=== PATIENT | male | born 1960 | race Hispanic/Latino ===

== ENCOUNTER 2017-05-15 16:40 | Observation (INO) | payer BC ==
[2017-05-15] MEDS ORDERED: Morphine 4 mg/ml ISec IVP STA ×2 (17:33→20:11)
--- NOTE | 2017-05-15 17:41 | ED PDOC ---
Arrival/HPI <Cl Ann - Last Filed: 05/15/17 20:21> - General Historian: Patient <Keo Franco - Last Filed: 05/17/17 21:09> - General Chief Complaint: Abdominal Pain Time Seen by Provider: 05/15/17 17:13 - History of Present Illness Narrative History of Present Illness (Text): 05/15/17 17:40 57yo male with PMhx of hypertension present with 2days history of RLQ abdominal pain with associated nonbloody diarrhea x 8. States pain became worse today. She denies nausea, vomiting, fever,chills, chest pain, urinary symptoms, any other complaint. (Keo Franco A) Past Medical History - Provider Review Nursing Documentation Reviewed: Yes - Infectious Disease Hx of Infectious Diseases: None - Tetanus Immunization Tetanus Immunization: Unknown - Cardiac Hx Cardiac Disorders: Yes Hx Hypertension: Yes - Pulmonary Hx Respiratory Disorders: No - Neurological Hx Neurological Disorder: Yes Hx Transient Ischemic Attacks (TIA): Yes - HEENT Hx HEENT Disorder: No - Renal Hx Renal Disorder: No - Endocrine/Metabolic Hx Endocrine Disorders: No - Hematological/Oncological Hx Blood Disorders: No - Integumentary Hx Dermatological Disorder: No - Musculoskeletal/Rheumatological Hx Musculoskeletal Disorders: Yes Hx Arthritis: Yes - Gastrointestinal Hx Gastrointestinal Disorders: No - Genitourinary/Gynecological Hx Genitourinary Disorders: No - Psychiatric Hx Psychophysiologic Disorder: No Hx Substance Use: No - Surgical History Hx Orthopedic Surgery: Yes Other/Comment: BILATERAL ROTATOR CUFF SX, LEFT ANKLE SX, sinus - Anesthesia Hx Anesthesia: Yes Hx Anesthesia Reactions: No Hx Malignant Hyperthermia: No - Suicidal Assessment Feels Threatened In Home Enviroment: No <Keo Franco - Last Filed: 05/17/17 21:09> Family/Social History - Physician Review Nursing Documentation Reviewed: Yes Family/Social History: Unknown Family HX Smoking Status: Heavy Smoker > 10 Cigarettes Daily Hx Alcohol Use: Yes Hx Substance Use: No Hx Substance Use Treatment: No <Keo Franco - Last Filed: 05/17/17 21:09> Allergies/Home Meds <Cl Ann - Last Filed: 05/15/17 20:21> <Keo Franco A - Last Filed: 05/17/17 21:09> Allergies/Adverse Reactions: Allergies naproxen Allergy (Verified 05/15/17 17:18) ITCHING sulfamethoxazole [From Bactrim] Allergy (Verified 05/15/17 17:18) ITCHING trimethoprim [From Bactrim] Allergy (Verified 05/15/17 17:18) ITCHING Home Medications: Home Meds Medication Instructions Recorded Confirmed Unobtainable 05/15/17 05/15/17 Review of Systems - Physician Review All systems were reviewed & negative as marked: Yes - Review of Systems Constitutional: Normal Eyes: Normal ENT: Normal Respiratory: Normal Cardiovascular: Normal Gastrointestinal: Abdominal Pain, Diarrhea. absent: Constipation, Nausea, Vomiting, Hematemesis Genitourinary Male: Normal Musculoskeletal: Normal Skin: Normal Neurological: Normal Endocrine: Normal Hemo/Lymphatic: Normal Psychiatric: Normal <Diru,Happiness A - Last Filed: 05/17/17 21:09> Physical Exam Vital Signs Reviewed: Yes Temperature: Afebrile Blood Pressure: Normal Pulse: Regular Respiratory Rate: Normal Appearance: Positive for: Well-Appearing, Non-Toxic, Comfortable Pain Distress: None Mental Status: Positive for: Alert and Oriented X 3 - Systems Exam Head: Present: Atraumatic, Normocephalic Pupils: Present: PERRL Extroacular Muscles: Present: EOMI Conjunctiva: Present: Normal Mouth: Present: Moist Mucous Membranes Neck: Present: Normal Range of Motion Respiratory/Chest: Present: Clear to Auscultation, Good Air Exchange. No: Respiratory Distress, Accessory Muscle Use Cardiovascular: Present: Regular Rate and Rhythm, Normal S1, S2. No: Murmurs Abdomen: Present: Tenderness (RLQ), Normal Bowel Sounds, Guarding (Voluntary), Other (soft). No: Distention, Peritoneal Signs, Rebound, McBurney's Point Tender, Rovsing's Sign Present Back: Present: Normal Inspection Upper Extremity: Present: Normal Inspection. No: Cyanosis, Edema Lower Extremity: Present: Normal Inspection. No: Edema Neurological: Present: GCS=15, CN II-XII Intact, Speech Normal Skin: Present: Warm, Dry, Normal Color. No: Rashes Psychiatric: Present: Alert, Oriented x 3, Normal Insight, Normal Concentration <Diru,Happiness A - Last Filed: 05/17/17 21:09> Vital Signs Temp Pulse Resp BP Pulse Ox 05/15/17 20:42 60 18 120/78 99 05/15/17 17:18 97.7 F 77 18 149/89 98 Medical Decision Making <Cl Ann - Last Filed: 05/15/17 20:21> <Keo Franco - Last Filed: 05/17/17 21:09> ED Course and Treatment: 05/17/17 21:02 PT presented for stated history. His pain improved temporary, but he started complaining of pain again in ED. Lab was unremarkable Abdominal/Pelvic CT IMPRESSION: Evaluation of bowel is limited without enteric contrast. Stomach is collapsed, limiting its evaluation. Segment of small bowel wall prominence in the left midabdomen, best seen on coronal image 62, cannot exclude inflammation or other abnormality at this site. Retained fecal material in the colon. Normal-caliber appendix. Additional details/findings as above. Correlate clinically. Followup as warranted. Result was DW the pt. He notes that he can't tolerate the pain. He was given Cipro and flagyl Case was DW Dr. Enriquez and pt was admitted for pain control and further evaluation by a GI. (Keo Franco) - Lab Interpretations Lab Results: 05/15/17 18:10 05/15/17 18:10 Lab Results 05/15/17 18:40: Lactic Acid 0.6 L 05/15/17 18:10: Sodium 140, Potassium 3.6, Chloride 106, Carbon Dioxide 24, Anion Gap 13, BUN 19, Creatinine 0.7 L, Est GFR ( Amer) > 60, Est GFR ( Non-Af Amer) > 60, Random Glucose 92, Calcium 9.3, Total Bilirubin 0.7, AST 33, ALT 36, Alkaline Phosphatase 112, Lactate Dehydrogenase 418, Total Creatine Kinase 100, Troponin I < 0.01, Total Protein 7.2, Albumin 4.4, Globulin 2.8, Albumin/Globulin Ratio 1.5, Amylase 45, Lipase 25 05/15/17 18:10: PT 11.5, INR 1.05, APTT 34.2 05/15/17 18:10: WBC 8.8 D, RBC 4.57, Hgb 14.2, Hct 42.1, MCV 92.1, MCH 31.1, MCHC 33.7, RDW 13.8, Plt Count 274, MPV 10.7, Gran % 63.4, Lymph % (Auto) 26.1, [place] % (Auto) 7.0 H, Eos % (Auto) 2.7, Baso % (Auto) 0.8, Gran # 5.55, Lymph # 2.3, [place] # 0.6, Eos # 0.2, Baso # 0.07 05/15/17 18:00: Urine Color Yellow, Urine Appearance Clear, Urine pH 6.0, Ur Specific [place] 1.020, Urine Protein Negative, Urine Glucose (UA) Negative, Urine Ketones Negative, Urine Blood Negative, Urine Nitrate Negative, Urine Bilirubin Negative, Urine Urobilinogen 0.2, Ur Leukocyte Esterase Negative - RAD Interpretation Radiology Orders: 05/15/17 17:34 ABD & PELVIS IV CONTRAST ONLY [CT] Stat - Medication Orders Current Medication Orders: Discontinued Medications Famotidine (Pepcid) 20 mg IVP STAT STA Stop: 05/15/17 17:34 Last Admin: 05/15/17 18:06 Dose: 20 mg IVP Administration Document 05/15/17 18:06 EQ (Rec: 05/15/17 18:06 EQ [id number]) Charges for Administration # of IVP Administrations 1 Metronidazole (Flagyl) 500 mg in 100 mls @ 100 mls/hr IVPB STAT STA PRN Reason: Protocol Stop: 05/15/17 21:13 Last Admin: 05/15/17 20:36 Dose: 100 mls/hr eMAR Start Stop Document 05/15/17 20:36 EQ (Rec: 05/15/17 20:36 EQ [id number]) Intravenous Solution Start Date 05/15/17 Start Time 20:36 Ciprofloxacin (Cipro 400mg/200ml Dsw) 400 mg in 200 mls @ 133.3 mls/hr IVPB STAT STA PRN Reason: Protocol Stop: 05/15/17 21:45 Last Admin: 05/15/17 22:36 Dose: 133.3 mls/hr eMAR Start Stop Document 05/15/17 22:36 IMT (Rec: 05/15/17 22:36 IMT [facility] [id number]) Intravenous Solution Start Date 05/15/17 Start Time 22:36 End Date 05/16/17 End time 00:06 Total Infusion Time 90 Sodium Chloride (Sodium Chloride 0.9%) 1,000 mls @ 100 mls/hr IV .Q10H STA Stop: 05/16/17 06:22 Last Admin: 05/15/17 20:35 Dose: 100 mls/hr eMAR Start Stop Document 05/15/17 20:35 EQ (Rec: 05/15/17 20:36 EQ [id number]) Intravenous Solution Start Date 05/15/17 Start Time 20:35 Sodium Chloride (Sodium Chloride 0.9%) 1,000 mls @ 100 mls/hr IV .Q10H DEEP Morphine Sulfate (Morphine) 4 mg IVP STAT STA Stop: 05/15/17 17:34 Last Admin: 05/15/17 18:05 Dose: 4 mg MAR Pain Assessment Document 05/15/17 18:05 EQ (Rec: 05/15/17 18:06 EQ [id number]) Pain Reassessment Is this a pain reassessment? No Sleep Is patient sleeping during reassessment? No Presence of Pain Presence of Pain Yes Pain Scale Used Pain Scale Used Numeric IVP Administration Document 05/15/17 18:05 EQ (Rec: 05/15/17 18:06 EQ [id number]) Charges for Administration # of IVP Administrations 1 Morphine Sulfate (Morphine) 4 mg IVP STAT STA Stop: 05/15/17 20:12 Last Admin: 05/15/17 20:36 Dose: 4 mg MAR Pain Assessment Document 05/15/17 20:36 EQ (Rec: 05/15/17 20:36 EQ [id number]) Pain Reassessment Is this a pain reassessment? No Sleep Is patient sleeping during reassessment? No Presence of Pain Presence of Pain Yes IVP Administration Document 05/15/17 20:36 EQ (Rec: 05/15/17 20:36 EQ [id number]) Charges for Administration # of IVP Administrations 1 Morphine Sulfate (Morphine) 4 mg IVP Q4H PRN PRN Reason: Pain, moderate (4-7) Last Admin: 05/16/17 16:02 Dose: 4 mg MAR Pain Assessment Document 05/16/17 16:02 TAV (Rec: 05/16/17 16:03 TAV [facility] [id number]) Pain Reassessment Is this a pain reassessment? No Presence of Pain Presence of Pain Yes Pain Scale Used Pain Scale Used Numeric Location Left, Right or Bilateral Right Upper or Lower Lower Pain Location Body Site Abdomen Description Description Throbbing Intensity of Pain at present 6 Pain Behavior Restlessness Aggravating Factors Changing Position Alleviating Factors/Management Medication Techniques Alleviating Factors Medication IVP Administration Document 05/16/17 16:02 TAV (Rec: 05/16/17 16:03 TAV [facility] [id number]) Charges for Administration # of IVP Administrations 1 Re-Assess: LEANDRA Pain Assessment Document 05/16/17 17:02 DM (Rec: 05/16/17 18:04 [id number] Pain Reassessment Is this a pain reassessment? Yes Sleep Is patient sleeping during reassessment? No Presence of Pain Presence of Pain Yes Pain Scale Used Pain Scale Used Numeric Description Intensity of Pain at present 4 Ondansetron HCl (Zofran Inj) 4 mg IVP STAT STA Stop: 05/15/17 17:34 Last Admin: 05/15/17 18:06 Dose: 4 mg IVP Administration Document 05/15/17 18:06 EQ (Rec: 05/15/17 18:06 EQ [id number]) Charges for Administration # of IVP Administrations 1 Ondansetron HCl (Zofran Inj) 4 mg IVP Q6H PRN PRN Reason: Nausea/Vomiting Pantoprazole Sodium (Protonix Inj) 40 mg IVP DAILY [facility] Last Admin: 05/17/17 10:10 Dose: 40 mg IVP Administration Document 05/17/17 10:10 TAV (Rec: 05/17/17 10:10 TAV [id number]) Charges for Administration # of IVP Administrations 1 Vitamin A (Vitamin A & D Oint Ud Foilpak) 1 ea TOP Q4 PRN PRN Reason: Dry mouth Last Admin: 05/16/17 11:22 Dose: 1 ea - PA / STONE ENGRAVER / Resident Statement / has reviewed & agrees with the documentation as recorded. / has examined the patient and agrees with the treatment plan. <Cl Ann - Last Filed: 05/15/17 20:21> Disposition/Present on Arrival <Cl Ann - Last Filed: 05/15/17 20:21> - Present on Arrival Any Indicators Present on Arrival: No History of DVT/PE: No History of Uncontrolled Diabetes: No Urinary Catheter: No History of Decub. Ulcer: No History Surgical Site Infection Following: None - Disposition Have Diagnosis and Disposition been Completed?: Yes Disposition Time: 20:15 <Keo Franco - Last Filed: 05/17/17 21:09> - Disposition Diagnosis: Intractable abdominal pain, Colitis Disposition: HOSPITALIZED Condition: FAIR
--- NOTE | 2017-05-15 18:04 | CP.PCM.CON ---
History of Present Illness - History of Present Illness History of Present Illness: General Surgery Consult Note for Dr. Cerna Reason for Consult: RLQ abdominal pain and diarrhea 57 M with PMH of HTN, TIA and GERD who presents to [facility] [place] complaint of RLQ abdominal pain. General surgery was consulted and patient was evaluated in the ED. Patient states that pain began two days ago while at home. Patient reports sudden onset and states it has gotten progressively worse. Patient rates pain as severe when at its worst. He describes the pain as constant and sharp located in RLQ of abdomen with radiation to right flank. Patient reports eight bouts of associated non-bloody diarrhea. He reports that flexion exacerbates his pain while nothing alleviates it. Denies fevers/chills, chest pain, SOB, palpitations, nausea/vomiting, constipation, incontinence. PMD: Dr. Newsome PMH: HTN, cholelithiasis/biliary sludge, TIA, arthritis, GERD Meds: As per EMR Allergy: Naproxen, Bactrim PSH: Bilateral Rotator Cuff repairs, right ankle surgery, EGD, Colonoscopy FH: unknown Social: Current smoker - 1 pack/day for 40 year, social alcohol use, denies any illicit drug use, Works in housekeeping at [employer] Review of Systems - Review of Systems All systems: reviewed and no additional remarkable complaints except (as per HPI ) Past Patient History - Infectious Disease Hx of Infectious Diseases: None - Tetanus Immunizations Tetanus Immunization: Unknown - Past Social History Smoking Status: Heavy Smoker > 10 Cigarettes Daily - CARDIAC Hx Cardiac Disorders: Yes Hx Hypertension: Yes - PULMONARY Hx Respiratory Disorders: No - NEUROLOGICAL Hx Neurological Disorder: Yes Hx Transient Ischemic Attacks (TIA): Yes - HEENT Hx HEENT Problems: No - RENAL Hx Chronic Kidney Disease: No - ENDOCRINE/METABOLIC Hx Endocrine Disorders: No - HEMATOLOGICAL/ONCOLOGICAL Hx Blood Disorders: No - INTEGUMENTARY Hx Dermatological Problems: No - MUSCULOSKELETAL/RHEUMATOLOGICAL Hx Musculoskeletal Disorders: Yes Hx Arthritis: Yes - GASTROINTESTINAL Hx Gastrointestinal Disorders: No - GENITOURINARY/GYNECOLOGICAL Hx Genitourinary Disorders: No - PSYCHIATRIC Hx Psychophysiologic Disorder: No Hx Substance Use: No - SURGICAL HISTORY Hx Orthopedic Surgery: Yes Other/Comment: BILATERAL ROTATOR CUFF SX, LEFT ANKLE SX, sinus - ANESTHESIA Hx Anesthesia: Yes Hx Anesthesia Reactions: No Hx Malignant Hyperthermia: No Meds Allergies/Adverse Reactions: Allergies Allergy/AdvReac Type Severity Reaction Status Date / Time naproxen Allergy ITCHING Verified 05/15/17 17:18 sulfamethoxazole Allergy ITCHING Verified 05/15/17 17:18 [From Bactrim] trimethoprim [From Bactrim] Allergy ITCHING Verified 05/15/17 17:18 Physical Exam - Constitutional Appears: No Acute Distress - Head Exam Head Exam: ATRAUMATIC, NORMOCEPHALIC - Eye Exam Eye Exam: EOMI, Normal appearance Pupil Exam: PERRL - ENT Exam ENT Exam: Mucous Membranes Dry - Neck Exam Neck exam: Positive for: Full Rom - Respiratory Exam Respiratory Exam: NORMAL BREATHING PATTERN - Cardiovascular Exam Cardiovascular Exam: REGULAR RHYTHM - GI/Abdominal Exam GI & Abdominal Exam: Guarding (voluntary), Normal Bowel Sounds, Soft, Tenderness (RLQ). absent: Distended, Firm, Hernia, Rebound, Rigid - Extremities Exam Extremities exam: Negative for: calf tenderness - Back Exam Back exam: absent: CVA tenderness (L), CVA tenderness (R) - Neurological Exam Neurological exam: Alert, CN II-XII Intact, Oriented x3 - Psychiatric Exam Psychiatric exam: Normal Affect, Normal Mood - Skin Skin Exam: Dry, Intact, Normal Color, Warm Results - Vital Signs Recent Vital Signs: Last Vital Signs Temp 97.7 F 05/15/17 17:18 Pulse 77 05/15/17 17:18 Resp 18 05/15/17 17:18 BP 149/89 05/15/17 17:18 Pulse Ox 98 05/15/17 17:18 - Labs Result Diagrams: 05/15/17 18:10 05/15/17 18:10 Assessment & Plan - Assessment and Plan (Free Text) Plan: 57 M with PMH of HTN, TIA and GERD who presents to [facility] for complaint of RLQ abdominal pain and diarrhea likely secondary to gastroenteritis. CT showed no evidence of acute appendicitis -NPO -IV fluids -IV antibiotics -Analgesics PRN -Serial abdominal exams -No surgical intervention at this time. Reconsult as needed. Thank you. -Discussed with Dr. Nehemiah Avalos PGY1
[2017-05-15] MEDS ORDERED: Iohexol 350 MG/100 ML VIAL ONE (18:21)
[2017-05-15 18:46] LABS: URINE BILIRUBIN NEGATIVE (NEGATIVE); URINE BLOOD NEGATIVE (NEGATIVE); URINE GLUCOSE (UA) NEGATIVE (NEGATIVE); URINE LEUKOCYTE ESTERASE NEGATIVE Leu/uL (NEGATIVE); URINE NITRATE NEGATIVE (NEGATIVE); URINE PROTEIN NEGATIVE mg/dL (<30 mg/dL); URINE UROBILINOGEN 0.2 E.U./dL (<1 E.U./dL)
[2017-05-15 18:47] LABS: BASO # 0.07 K/mm3 (0.0-2.0); BASO % 0.8 % (0.0-3.0); EOS # 0.2 (0.0-0.7); EOS % 2.7 % (1.5-5.0); GRAN # 5.55 (1.4-6.5); GRAN % 63.4 % (50.0-68.0); HEMOGLOBIN 14.2 g/dL (14.0-18.0); LYMPH # 2.3 (1.2-3.4); LYMPH % 26.1 % (22.0-35.0); MEAN CELL VOLUME 92.1 fl (80.0-105.0); MEAN CORPUSCULAR HEMOGLOBIN 31.1 pg (25.0-35.0); MEAN CORPUSCULAR HGB CONC 33.7 g/dl (31.0-37.0); MEAN PLATELET VOLUME 10.7 fl (7.0-11.0); MONO # 0.6 (0.1-0.6); RBC 4.57 10^6/uL (3.5-6.1); RED CELL DISTRIBUTION WIDTH 13.8 % (11.5-14.5); WHITE BLOOD COUNT 8.8 10^3/ul (4.5-11.0)
[2017-05-15 18:54] LABS: INR 1.05 (0.93-1.08); PARTIAL THROMBOPLASTIN TIME 34.2 Seconds (25.1-36.5); PROTHROMBIN TIME 11.5 SECONDS (9.4-12.5)
[2017-05-15 18:55] LABS: URINE APPEARANCE CLEAR (CLEAR); URINE COLOR YELLOW (YELLOW)
[2017-05-15 18:59] LABS: ALB/GLOB RATIO 1.5 (1.1-1.8); ALBUMIN 4.4 g/dL (3.0-4.8); ALT/SGPT 36 U/L (7-56); AMYLASE 45 U/L (35-125); AST/SGOT 33 U/L (17-59); BLOOD UREA NITROGEN 19 mg/dL (7-21); CALCIUM 9.3 mg/dL (8.4-10.5); GFR AFRICAN-AMERICAN > 60; GFR NON-AFRICAN AMERICAN > 60; LIPASE 25 U/L (23-300)
[2017-05-15 19:10] LABS: TROPONIN I < 0.01 ng/mL
--- NOTE | 2017-05-15 20:02 | CT ---
EXAM: CT Abdomen and Pelvis With Intravenous Contrast CLINICAL HISTORY: 57 years old, male; Pain; Abdominal pain; Localized; Right lower quadrant (rlq); Additional info: Rlq abdominal pain TECHNIQUE: Axial computed tomography images of the abdomen and pelvis with intravenous contrast. All CT scans at this facility use one or more dose reduction techniques, viz.: automated exposure control; ma/kV adjustment per patient size (including targeted exams where dose is matched to indication; i.e. head); or iterative reconstruction technique. Coronal and sagittal reformatted images were created and reviewed. CONTRAST: 100 mL of OMNI 350 administered intravenously. COMPARISON: No relevant prior studies available. FINDINGS: ABDOMEN: Liver: No acute abnormality as visualized. Gallbladder and bile ducts: No acute abnormality as visualized. Ultrasound can provide more sensitive evaluation of the biliary system as warranted. Pancreas: No acute abnormality as visualized. Spleen: No splenomegaly. Adrenals: No acute abnormality as visualized. Kidneys and ureters: No acute abnormality as visualized. Symmetric emhancement. No hydronephrosis. Stomach and bowel: Evaluation of bowel is limited without enteric contrast. Stomach is collapsed, limiting its evaluation. Segment of small bowel wall prominence in the left midabdomen, axial image 62. Retained fecal material in the colon. No obstruction. Appendix: No findings to suggest acute appendicitis. Normal-caliber appendix. PELVIS: Bladder: No acute abnormality as visualized. Reproductive: No acute abnormality as visualized. ABDOMEN and PELVIS: Intraperitoneal space: No free air. No significant fluid collection. Bones: Degenerative changes. Vasculature: Atherosclerosis. No abdominal aortic aneurysm. Lymph nodes: No acute abnormality as visualized. IMPRESSION: Evaluation of bowel is limited without enteric contrast. Stomach is collapsed, limiting its evaluation. Segment of small bowel wall prominence in the left midabdomen, best seen on coronal image 62, cannot exclude inflammation or other abnormality at this site. Retained fecal material in the colon. Normal-caliber appendix. Additional details/findings as above. Correlate clinically. Followup as warranted.
[2017-05-15] MEDS ORDERED: metroNIDAZOLE IV 500 mg/100 ml 500 MG/100 ML BAG IVPB STA (20:14)
[2017-05-15] MEDS ORDERED: Ciprofloxacin 400mg/200ml D5W 400 MG/200 ML BAG IVPB STA (20:15)
[2017-05-15] MEDS ORDERED: Sodium Chloride 0.9% 1,000 ML IV STA (20:23)
[2017-05-15] MEDS ORDERED: Sodium Chloride 0.9% 1,000 ML IV SCH (21:30)
--- NOTE | 2017-05-15 22:19 | CP.PCM.HP ---
History of Present Illness - History of Present Illness History of Present Illness: Mr. Del Cid is a 57 year old male with a past medical history significant for HTN, cholelithiasis/biliary sludge, "minor" stroke, arthritis of right ankle and GERD who presents with a chief complaint of intermittent RLQ "aching" abdominal pain rated 8/10 with 8 episodes of associated nonbloody diarrhea of normal color for a duration of two days. Patient reports that two days ago he began to experience the pain described above with no reported inciting event. He endorses that the pain has intermittent radiation to his back on the right side. He denies any alleviating factors but reports that leaning forward induces his pain. He reports that he came to the [facility] because the pain was persisting and gradually becoming worse. He does endorses that he completed a "Z -pack" for poison trace one month ago prescribed to him by Dr. Newsome. He endorses nonbloody diarrhea and chronic arthritic pain but denies fevers, chills , headache, changes in his vision, dysphagia, chest pain, palpitations, SOB, cough, N/V, difficulty tolerating PO intake, constipation, BRBPR, melena, burning/pain with urination, rashes or any numbness/tingling/weakness of any extremity. PMH: As stated above PSH: Bilateral Rotator Cuff repairs and right ankle surgery; Reports Upper Endoscopy and Colonoscopy done ~[address] Bernard with no abnormal findings Family History: Denies any history of colon cancer, IBD Social History: Current 1ppd tobacco use with 40 year pack history, social alcohol use and denies any illicit drug use; Works in housekeeping at [employer] Allergies: Aleve, Bactrim Home Medications: As per MAR Present on Admission - Present on Admission Any Indicators Present on Admission: No Review of Systems - Constitutional Constitutional: As Per HPI - EENT Eyes: As Per HPI Ears: As Per HPI Nose/Mouth/Throat: As Per HPI - Cardiovascular Cardiovascular: As Per HPI - Respiratory Respiratory: As Per HPI - Gastrointestinal Gastrointestinal: As Per HPI - Genitourinary Genitourinary: As Per HPI - Reproductive: Male Reproductive:Male: As Per HPI - Musculoskeletal Musculoskeletal: As Per HPI - Integumentary Integumentary: As Per HPI - Neurological Neurological: As Per HPI - Psychiatric Psychiatric: As Per HPI - Endocrine Endocrine: As Per HPI - Hematologic/Lymphatic Hematologic: As Per HPI Past Patient History - Infectious Disease Hx of Infectious Diseases: None - Tetanus Immunizations Tetanus Immunization: Unknown - Past Social History Smoking Status: Heavy Smoker > 10 Cigarettes Daily - CARDIAC Hx Cardiac Disorders: Yes Hx Hypertension: Yes - PULMONARY Hx Respiratory Disorders: No - NEUROLOGICAL Hx Neurological Disorder: Yes Hx Transient Ischemic Attacks (TIA): Yes - HEENT Hx HEENT Problems: No - RENAL Hx Chronic Kidney Disease: No - ENDOCRINE/METABOLIC Hx Endocrine Disorders: No - HEMATOLOGICAL/ONCOLOGICAL Hx Blood Disorders: No - INTEGUMENTARY Hx Dermatological Problems: No - MUSCULOSKELETAL/RHEUMATOLOGICAL Hx Musculoskeletal Disorders: Yes Hx Arthritis: Yes - GASTROINTESTINAL Hx Gastrointestinal Disorders: No - GENITOURINARY/GYNECOLOGICAL Hx Genitourinary Disorders: No - PSYCHIATRIC Hx Psychophysiologic Disorder: No Hx Substance Use: No - SURGICAL HISTORY Hx Orthopedic Surgery: Yes Other/Comment: BILATERAL ROTATOR CUFF SX, LEFT ANKLE SX, sinus - ANESTHESIA Hx Anesthesia: Yes Hx Anesthesia Reactions: No Hx Malignant Hyperthermia: No Meds Allergies/Adverse Reactions: Allergies Allergy/AdvReac Type Severity Reaction Status Date / Time naproxen Allergy ITCHING Verified 05/15/17 17:18 sulfamethoxazole Allergy ITCHING Verified 05/15/17 17:18 [From Bactrim] trimethoprim [From Bactrim] Allergy ITCHING Verified 05/15/17 17:18 Physical Exam - Constitutional Appears: Non-toxic, No Acute Distress - Head Exam Head Exam: ATRAUMATIC, NORMOCEPHALIC - Eye Exam Eye Exam: EOMI, Normal appearance, PERRL Pupil Exam: NORMAL ACCOMODATION, PERRL - ENT Exam ENT Exam: Mucous Membranes Dry, Normal Exam. absent: Mucous Membranes Moist - Neck Exam Neck exam: Positive for: Full Rom, Normal Inspection. Negative for: Lymphadenopathy - Respiratory Exam Respiratory Exam: Clear to Auscultation Bilateral, NORMAL BREATHING PATTERN. absent: Accessory Muscle Use, Chest Wall Tenderness, Decreased Breath Sounds, Rales, Rhonchi, Wheezes, Respiratory Distress - Cardiovascular Exam Cardiovascular Exam: REGULAR RHYTHM, RRR, +S1, +S2. absent: Bradycardia, Tachycardia, Irregular Rhythm, +S4 - GI/Abdominal Exam GI & Abdominal Exam: Guarding (RLQ upon palpation), Normal Bowel Sounds, Tenderness (RLQ TTP (light and deep)). absent: Bruit, Diminished Bowel Sounds, Distended, Firm, Hernia, Hyperactive Bowel Sounds, Hypoactive Bowel Sounds, Mass , Organomegaly, Pulsatile Mass, Rebound, Rigid, Soft - Rectal Exam Rectal Exam: NORMAL INSPECTION (FOBT negative). absent: Black Stool, Bloody Stool, Hemorrhoids, Fecal Impaction - Extremities Exam Extremities exam: Positive for: full ROM, normal capillary refill, normal inspection, pedal pulses present. Negative for: calf tenderness, pedal edema - Back Exam Back exam: NORMAL INSPECTION. absent: CVA tenderness (L), CVA tenderness (R), paraspinal tenderness, tenderness, vertebral tenderness - Neurological Exam Neurological exam: Alert, CN II-XII Intact, Normal Gait, Oriented x3, Reflexes Normal - Psychiatric Exam Psychiatric exam: Normal Affect, Normal Mood - Skin Skin Exam: Dry, Intact, Normal Color, Warm Results - Vital Signs Recent Vital Signs: Last Vital Signs Temp 97.7 F 05/15/17 17:18 Pulse 60 05/15/17 20:42 Resp 18 05/15/17 20:42 BP 120/78 05/15/17 20:42 Pulse Ox 99 05/15/17 20:42 - Labs Result Diagrams: 05/15/17 18:10 05/15/17 18:10 Assessment & Plan - Assessment and Plan (Free Text) Assessment: 57 year old male with a past medical history significant for HTN, cholelithiasis /biliary sludge, "minor" stroke, arthritis of right ankle and GERD who presents with a chief complaint of intermittent RLQ "aching" abdominal pain rated 8/10 with 8 episodes of associated nonbloody diarrhea of normal color for a duration of two days Plan: 1. RLQ Abdominal Tenderness -CT Abdomen/Pelvis with IV Contrast showed segment of small bowel wall prominence in the left midabdomen with normal caliber appendix -Patient received one dose of Cipro and Flagyl in ED -Daily CBC/CMP -NS at 100mls/hr -Zofran 4mg Q6H PRN for N/V -Morphine 4mg Q4H PRN for pain control -C.Diff Toxin pending; Hemoccult Negative -NPO Diet -GI and Surgery consulted, will await recommendations Prophylaxis: SCD's and Protonix Patient seen and case discussed with attending, Dr. Enriquez - Date & Time Date: 05/15/17 Time: 22:35 Decision To Admit - Pt Status Changed To: Hospital Disposition Of: Observation - . Bed Request Type: Med/Surg
[2017-05-15 22:35] VITALS: BMI 24.4
[2017-05-15] MEDS: Vitamins A & D Oint UD Foilpak TOP PRN (22:40)
[2017-05-15] MEDS: Morphine 4 mg/ml ISec IVP PRN (23:21)
[2017-05-16] MEDS: Morphine 4 mg/ml ISec IVP PRN ×2 (06:32→16:02)
[2017-05-16 08:14] LABS: BASO # 0.07 K/mm3 (0.0-2.0); EOS # 0.3 (0.0-0.7); EOS % 4.1 % (1.5-5.0); GRAN # 4.12 (1.4-6.5); GRAN % 56.6 % (50.0-68.0); HEMOGLOBIN 13.3 g/dL (14.0-18.0); LYMPH # 2.3 (1.2-3.4); LYMPH % 31.3 % (22.0-35.0); MEAN CELL VOLUME 93.6 fl (80.0-105.0); MEAN CORPUSCULAR HEMOGLOBIN 30.4 pg (25.0-35.0); MEAN CORPUSCULAR HGB CONC 32.5 g/dl (31.0-37.0); MEAN PLATELET VOLUME 10.5 fl (7.0-11.0); MONO # 0.5 (0.1-0.6); RBC 4.37 10^6/uL (3.5-6.1); WHITE BLOOD COUNT 7.3 10^3/ul (4.5-11.0)
[2017-05-16 08:30] LABS: ALB/GLOB RATIO 1.4 (1.1-1.8); ALBUMIN 3.9 g/dL (3.0-4.8); ALT/SGPT 35 U/L (7-56); AST/SGOT 24 U/L (17-59); BLOOD UREA NITROGEN 19 mg/dL (7-21); CALCIUM 8.6 mg/dL (8.4-10.5); GFR AFRICAN-AMERICAN > 60; GFR NON-AFRICAN AMERICAN > 60
--- NOTE | 2017-05-16 09:08 | CP.PCM.PN ---
Subjective - Date & Time of Evaluation Date of Evaluation: 05/16/17 Time of Evaluation: 08:20 - Subjective Subjective: Patient seen and examined at bedside. He states that his abdominal pain is intermittent but that he has tolerated his diet well. denies anymore episodes of diarrhea and has not had any vomiting in this episode. pt denies fevers/ chills, n/v/d, or current abdominal pain. Objective - Vital Signs/Intake and Output Vital Signs (last 24 hours): Temp Pulse Resp BP Pulse Ox 97.3 F L 54 L 20 125/76 95 05/16/17 08:00 05/16/17 08:00 05/16/17 08:00 05/16/17 08:00 05/16/17 08:00 - Medications Medications: Current Medications Sodium Chloride (Sodium Chloride 0.9%) 1,000 mls @ 100 mls/hr IV .Q10H DEEP Morphine Sulfate (Morphine) 4 mg IVP Q4H PRN PRN Reason: Pain, moderate (4-7) Last Admin: 05/16/17 06:32 Dose: 4 mg Ondansetron HCl (Zofran Inj) 4 mg IVP Q6H PRN PRN Reason: Nausea/Vomiting Pantoprazole Sodium (Protonix Inj) 40 mg IVP DAILY DEEP Vitamin A (Vitamin A & D Oint Ud Foilpak) 1 ea TOP Q4 PRN PRN Reason: Dry mouth Last Admin: 05/15/17 22:40 Dose: 1 ea - Labs Labs: 05/16/17 07:30 05/16/17 07:30 PT 11.5 SECONDS (9.4-12.5) 05/15/17 18:10 INR 1.05 (0.93-1.08) 05/15/17 18:10 APTT 34.2 Seconds (25.1-36.5) 05/15/17 18:10 - Constitutional Appears: Well, Non-toxic, No Acute Distress - Head Exam Head Exam: NORMAL INSPECTION - Eye Exam Eye Exam: EOMI, PERRL - ENT Exam ENT Exam: Mucous Membranes Moist - Neck Exam Neck Exam: Normal Inspection - Respiratory Exam Respiratory Exam: Clear to Ausculation Bilateral, NORMAL BREATHING PATTERN. absent: Rales, Wheezes, Respiratory Distress - Cardiovascular Exam Cardiovascular Exam: RRR, +S1, +S2. absent: JVD - GI/Abdominal Exam GI & Abdominal Exam: Guarding, Soft, Tenderness (deep palpation epigastric and r sided), Normal Bowel Sounds. absent: Distended, Rigid, Rebound - Extremities Exam Extremities Exam: Normal Inspection. absent: Pedal Edema - Back Exam Back Exam: NORMAL INSPECTION - Neurological Exam Neurological Exam: Alert, Awake, Oriented x3 - Psychiatric Exam Psychiatric exam: Normal Affect, Normal Mood - Skin Skin Exam: Normal Color, Warm Assessment and Plan - Assessment and Plan (Free Text) Assessment: 57 year old male with a past medical history significant for HTN, cholelithiasis /biliary sludge, "minor" stroke, arthritis of right ankle and GERD who presents with a chief complaint of intermittent RLQ "aching" abdominal pain associated with nonbloody diarrhea x2 days. CT Abdomen/Pelvis with IV Contrast showed segment of small bowel wall prominence in the left midabdomen with normal caliber appendix. Patient remains afebrile. Plan: 1. RLQ Abdominal Tenderness - diet advanced as tolerated; now eating HHD regular diet - no abx needed at this time due to patient's improvement and lack of fevers and WBC elevation - Daily CBC/CMP - NS at 100mls/hr - Zofran 4mg Q6H PRN for N/V - Morphine 4mg Q4H PRN for pain control - C.Diff Toxin pending; Hemoccult Negative - stool cultures pending - GI consulted, recs appreciated - Surgery consulted, no surgical intervention at this time - d/c likely tomorrow pending GI recs Prophylaxis: SCD's and Protonix Patient seen, examined and discussed with attending, Dr. Zoe Messina PGY1
[2017-05-16] MEDS: Vitamins A & D Oint UD Foilpak TOP PRN (11:22)
--- NOTE | 2017-05-16 20:26 | CON ---
DATE: HISTORY OF PRESENT ILLNESS: He was seen in the Emergency Room again on the floor. His pain was severe in right lower quadrant yesterday. It is mostly resolved. He had multiple episodes of diarrhea without blood. No nausea or vomiting. Abdomen is soft, nontender, and generally healthy. No chest pain or shortness of breath. Consult is seen and agreed with the resident. CAT scan is reviewed. The appendix is normal. Plan will be to him, culture his stool and discharge him expeditiously. Pato Cerna MD
--- NOTE | 2017-05-16 22:35 | CON ---
DATE: 05/16/2017 REQUESTING PHYSICIAN: Bo Newsome DO REASON FOR CONSULTATION: I have been asked to see this 57-year-old male who is known to me from a colonoscopy, which I performed about 10 years ago, who comes to the hospital with right mid to right lower quadrant abdominal pain radiating to the right flank for 2 days associated with diarrhea. The patient states he was averaging 6 watery bowel movements per day for the last 24 to 36 hours including nocturnal diarrhea. He denies any fevers, but did admit to some chills. He denies any nausea or vomiting. He denies any recent use of antibiotics or ingestion of any unusual foods. There is no one else at home that has a diarrheal illness. CT scan of the abdomen and pelvis performed in the emergency room showed one segment of small bowel in the left upper quadrant with mural thickening. There is also stool noted throughout the colon. This morning, the patient feels better and was extremely hungry, asking for solid food. He was taking solid foods for lunch during my visit. He has not had any further diarrhea since his hospitalization. His abdominal pain has improved. PAST MEDICAL HISTORY: Notable for hypertension, gastroesophageal reflux disease, TIA, degenerative joint disease, cholelithiasis. PAST SURGICAL HISTORY: Notable for bilateral rotator cuff shoulder surgery, right ankle surgery. SOCIAL HISTORY: He smokes up to a pack of cigarettes per day and he has done so for 40 years. He consumes alcohol on a social basis. REVIEW OF SYSTEMS: 14-point review of systems is notable for right lower quadrant abdominal pain and diarrhea. MEDICATIONS AT HOME: Include an unknown medication. ALLERGIES: HE IS ALLERGIC TO NAPROSYN, BACTRIM. PHYSICAL EXAMINATION: GENERAL: Well-developed male, lying in bed, in no distress. VITAL SIGNS: Reveal temperature of 97.3, blood pressure 125/76, heart rate of 54. HEENT: Reveals sclerae to be white. Conjunctivae pink. NECK: Supple. CHEST/LUNGS: Clear. HEART: Exam reveals a regular rate and rhythm. ABDOMEN: Soft, mild diffuse tenderness. No rebound. No guarding. EXTREMITIES: Show no edema. LABORATORY DATA: Reveal white blood cell count 7.3, hemoglobin 13.3. Chemistries reveal chloride of 109. AST, ALT, alk phos, amylase and lipase were all normal. IMPRESSION: This is a 57-year-old male with 2 days of diarrhea and right lower quadrant, right mid abdominal pain radiating to the right flank. CT scan of the abdomen and pelvis revealed nonspecific mural thickening of a loop of small bowel in the left upper quadrant. I suspect that the patient has an acute gastroenteritis. His symptoms have improved. He is tolerating solid foods. RECOMMENDATIONS: 1. Check stool for C&S and ova and parasites. 2. Check stool for C. diff. If the patient continues to improve clinically, can be discharged home either later today or tomorrow morning based on his symptoms of abdominal pain and diarrhea. I will follow the patient up as an outpatient. Sam Bernard MD
--- NOTE | 2017-05-17 09:09 | DS ---
HISTORY OF PRESENT ILLNESS: I saw Jose Enrique resting comfortably in bed. Slept very well last night. He is eating well. He is in no pain, not taking any medications. He is on Protonix, IV fluids, and Zofran, which he is not getting. His abdominal pain went away, it is all relieved. PHYSICAL EXAMINATION: VITAL SIGNS: Temperature 97.3, 67 pulse, 127/70 blood pressure, 16 respiratory rate, 100% O2 sat on room air. HEENT: His head is atraumatic and normocephalic. HEART: Regular rate. LUNGS: Clear to auscultation. ABDOMEN: Soft, nontender. Positive bowel sounds. No guarding. No rebound. No CVA tenderness. EXTREMITIES: No edema. LABORATORY DATA: He has white count 7.3, hemoglobin 13.3, hematocrit 40.9, platelets are 234. INR is 1.05. He has a 141 sodium, potassium 4.1, BUN 19, creatinine 0.9, GFR is greater than 60, sugar is 92, calcium is 8.6, total bilirubin is 0.7, AST 24, ALT 35, alkaline phosphatase is 96. Total protein is 6.5. Overall, he did well. He was seen by GI and Surgery. He states he does well overnight and eats well for breakfast. He can be discharged. We will discharge him home. He is on observation status. He is here for acute onset of abdominal pain. I will see him in the office in 2 days. Bo Newsome DO
--- NOTE | 2017-05-17 09:42 | PN ---
DATE: 05/17/2017 SUBJECTIVE: The patient is lying in bed. He denies any further abdominal pain or diarrhea. He denies nausea or vomiting. He is tolerating solid foods. MEDICATIONS: Include pantoprazole 40 mg IV, morphine sulfate 4 mg IV q. 4 hours. p.r.n. Zofran 4 mg IV q. 6 hours. p.r.n. PHYSICAL EXAMINATION: VITAL SIGNS: Reveal temperature of 97.3, blood pressure of 127/78, and heart rate of 57. HEENT: Reveals sclerae to be white. Conjunctivae are pink. NECK: Supple. CHEST/LUNGS: Clear. CARDIOVASCULAR: Heart exam reveals a regular rate and rhythm. GASTROINTESTINAL: Abdomen is soft and nontender. No mass. EXTREMITIES: Show no edema. LABORATORY DATA: Revealed white blood cell count of 7.3 and hemoglobin of 13.3. Chemistries revealed chloride of 109, BUN of 19, and creatinine of 0.9. IMPRESSION: Acute gastroenteritis, resolving. RECOMMENDATIONS: The patient is to follow up with me as an outpatient for an elective colonoscopy. Sam Brenard MD
[2017-05-17 10:57] VITALS: BP 142/66; PULSE 60; RESP 18; TEMP 97.5; O2SAT 97
--- NOTE | 2017-05-17 17:44 | CARD ---
APPROVED REPORT EKG Measurement Heart [id number] ND [id number] <Conclusion> Normal sinus rhythm Normal ECG
== END 2017-05-17 11:35 | disposition home or self-care (01) ==
LOC: ED 16:40 → ERH 20:17 → 5RSO 20:53
PROVIDERS: ADMIT Family Medicine; ATTEND Family Medicine
DX: K52.9 Noninfective gastroenteritis and colitis, unspecified (principal); K21.9 Gastro-esophageal reflux disease without esophagitis; I10 Essential (primary) hypertension; Z86.73 Personal history of transient ischemic attack (TIA), and cerebral infarction without residual deficits; F17.210 Nicotine dependence, cigarettes, uncomplicated; M19.90 Unspecified osteoarthritis, unspecified site; Z88.6 Allergy status to analgesic agent; Z88.3 Allergy status to other anti-infective agents; Z88.2 Allergy status to sulfonamides
CPT/HCPCS: 36415; 74177; 80053; 81003; 82150; 82550; 83605; 83615; 83690; 84484; 85025; 85610; 85730; 93005; 96365; 96375; 96376; 99283; C9113; G0378; J0744; J2270; J2405; J7040; Q9967

== ENCOUNTER 2017-07-24 19:07 | Observation (INO) | payer BC ==
[2017-07-24] MEDS ORDERED: Nitroglycerin 2% Ointment Foilpak UD TOP STA (19:17)
--- NOTE | 2017-07-24 19:21 | ED PDOC ---
Arrival/HPI - General Chief Complaint: Chest Pain Time Seen by Provider: 07/24/17 19:09 Historian: Patient, Spouse - History of Present Illness Time/Duration: Other (This morning) Quality: Aching, Pressure, Stabbing Severity Level: Moderate Activities at Onset: Rest Associated Symptoms (Text): 07/24/17 19:19 Patient woke up this morning with chest pain that he describes as an aching pressure stabbing sharp feeling with no radiation. There is some diaphoresis and some dizziness and dyspnea. No nausea or vomiting. He has never experienced this previously. It has been waxing and waning all day. It comes and goes all day. He is unable to quantify how long it lasts for. It became worse this evening and his called 911. Medics responded and he was treated with aspirin and nitroglycerin and felt better. Past Medical History - Infectious Disease Hx of Infectious Diseases: None - Tetanus Immunization Tetanus Immunization: Unknown - Cardiac Hx Cardiac Disorders: Yes Hx Hypertension: Yes - Pulmonary Hx Respiratory Disorders: No - Neurological Hx Neurological Disorder: Yes Hx Transient Ischemic Attacks (TIA): Yes - HEENT Hx HEENT Disorder: No - Renal Hx Renal Disorder: No - Endocrine/Metabolic Hx Endocrine Disorders: No - Hematological/Oncological Hx Blood Disorders: No - Integumentary Hx Dermatological Disorder: No - Musculoskeletal/Rheumatological Hx Musculoskeletal Disorders: Yes Hx Arthritis: Yes - Gastrointestinal Hx Gastrointestinal Disorders: No - Genitourinary/Gynecological Hx Genitourinary Disorders: No - Psychiatric Hx Psychophysiologic Disorder: No Hx Substance Use: No - Surgical History Hx Orthopedic Surgery: Yes Other/Comment: BILATERAL ROTATOR CUFF SX, LEFT ANKLE SX, sinus - Anesthesia Hx Anesthesia: Yes Hx Anesthesia Reactions: No Hx Malignant Hyperthermia: No - Suicidal Assessment Feels Threatened In Home Enviroment: No Family/Social History - Physician Review Nursing Documentation Reviewed: Yes Family/Social History: Unknown Family HX Smoking Status: Heavy Smoker > 10 Cigarettes Daily Hx Alcohol Use: Yes Frequency of alcohol use: Socially Hx Substance Use: No Hx Substance Use Treatment: No Allergies/Home Meds Allergies/Adverse Reactions: Allergies naproxen Allergy (Verified 07/24/17 19:17) ITCHING sulfamethoxazole [From Bactrim] Allergy (Verified 07/24/17 19:17) ITCHING trimethoprim [From Bactrim] Allergy (Verified 03/11/18 19:17) ITCHING Home Medications: Home Meds Medication Instructions Recorded Confirmed Esomeprazole Magnesium [Nexium] 1 cap PO DAILY 05/23/17 07/24/17 Valsartan [Diovan] 1 tab PO DAILY 05/23/17 07/24/17 amLODIPine [Norvasc] 2.5 tab PO DAILY 05/23/17 07/24/17 Review of Systems - Physician Review All systems were reviewed & negative as marked: Yes - Review of Systems Constitutional: Normal Respiratory: SOB. absent: Cough, Wheezing Cardiovascular: Chest Pain. absent: Palpitations, Orthopnea, Syncope Gastrointestinal: absent: Abdominal Pain, Diarrhea, Nausea, Vomiting Genitourinary Male: absent: Dysuria, Frequency, Hematuria Neurological: Dizziness. absent: Headache, Focal Weakness, Gait Changes Physical Exam Vital Signs Temp Pulse Resp BP Pulse Ox 07/24/17 19:15 98.3 F 92 H 16 126/83 97 Temperature: Afebrile Blood Pressure: Normal Pulse: Regular Respiratory Rate: Normal Appearance: Positive for: Well-Appearing, Non-Toxic, Comfortable Pain Distress: None Mental Status: Positive for: Alert and Oriented X 3 - Systems Exam Head: Present: Atraumatic, Normocephalic Pupils: Present: PERRL Extroacular Muscles: Present: EOMI Conjunctiva: Present: Normal Mouth: Present: Moist Mucous Membranes Pharnyx: No: ERYTHEMA, EXUDATE, TONSILS ENLARGED Neck: Present: Normal Range of Motion Respiratory/Chest: Present: Clear to Auscultation, Good Air Exchange, Decreased Breath Sounds. No: Respiratory Distress, Accessory Muscle Use Cardiovascular: Present: Regular Rate and Rhythm, Normal S1, S2. No: Murmurs Abdomen: Present: Normal Bowel Sounds. No: Tenderness, Distention, Peritoneal Signs, Rebound, Guarding Back: Present: Normal Inspection Upper Extremity: Present: Normal Inspection. No: Cyanosis, Edema Lower Extremity: Present: Normal Inspection. No: Edema Neurological: Present: GCS=15, CN II-XII Intact, Speech Normal, Motor Func Grossly Intact Skin: Present: Warm, Dry, Normal Color. No: Rashes Psychiatric: Present: Alert, Oriented x 3, Normal Insight, Normal Concentration Medical Decision Making ED Course and Treatment: 07/24/17 19:21 EKG shows normal sinus rhythm rate approximately [address] or T-wave changes - Lab Interpretations Lab Results: 07/24/17 19:30 07/24/17 19:30 Lab Results 07/24/17 19:30: Sodium 144, Potassium 3.5 L, Chloride 108 H, Carbon Dioxide 25, Anion Gap 14, BUN 24 H, Creatinine 0.8, Est GFR ( Amer) > 60, Est GFR ( Non-Af Amer) > 60, Random Glucose 143 H, Calcium 9.5, Magnesium 2.2, Total Bilirubin 0.5, AST 26, ALT 31, Alkaline Phosphatase 92, Lactate Dehydrogenase 395, Total Creatine Kinase 67, Troponin I < 0.01, Total Protein 7.1, Albumin 4.1 , Globulin 2.9, Albumin/Globulin Ratio 1.4 07/24/17 19:30: WBC 8.5, RBC 4.84, Hgb 14.8, Hct 44.8, MCV 92.6, MCH 30.6, MCHC 33.0, RDW 13.9, Plt Count 326, MPV 10.6, Gran % 66.8, Lymph % (Auto) 23.8, [place] % (Auto) 5.8, Eos % (Auto) 2.8, Baso % (Auto) 0.8, Gran # 5.69, Lymph # (Auto) 2.0, [place] # (Auto) 0.5, Eos # (Auto) 0.2, Baso # (Auto) 0.07 - RAD Interpretation Radiology Orders: 07/24/17 19:17 CHEST PORTABLE [RAD] Stat Chest one view shows no infiltrate or effusion or cardiomegaly Dietary Aide: ED Physician - Medication Orders Current Medication Orders: Discontinued Medications Levalbuterol HCl (Xopenex) 0.63 mg IH ONCE ONE Stop: 07/24/17 22:47 Last Admin: 07/24/17 22:57 Dose: 0.63 mg Nitroglycerin (Nitro-Bid 2% Oint) 1 ea TOP STAT STA Stop: 07/24/17 19:18 Last Admin: 07/24/17 19:30 Dose: 1 ea Oxycodone/Acetaminophen (Percocet 5/325 Mg Tab) 1 tab PO STAT STA Stop: 07/25/17 03:00 Last Admin: 07/25/17 03:11 Dose: 1 tab MAR Pain Assessment Document 07/25/17 03:11 TTC (Rec: 07/25/17 03:11 [place] [facility] [id number] Pain Reassessment Is this a pain reassessment? No Presence of Pain Presence of Pain Yes Pain Scale Used Pain Scale Used Numeric Location Pain Location Body Site Chest Re-Assess: LEANDRA Pain Assessment Document 07/25/17 04:11 TTC (Rec: 07/25/17 06:27 TTC [id number]) Pain Reassessment Is this a pain reassessment? Yes Sleep Is patient sleeping during reassessment? No Presence of Pain Presence of Pain No Potassium Chloride (K-Dur 20 Meq Er Tab) 20 meq PO STAT STA Stop: 07/24/17 20:12 Last Admin: 07/24/17 20:16 Dose: 20 meq Disposition/Present on Arrival - Present on Arrival Any Indicators Present on Arrival: No History of DVT/PE: No History of Uncontrolled Diabetes: No Urinary Catheter: No History of Decub. Ulcer: No History Surgical Site Infection Following: None - Disposition Have Diagnosis and Disposition been Completed?: Yes Diagnosis: Chest pain, Hypokalemia Disposition: HOSPITALIZED Disposition Time: 20:29 Patient Plan: Observation, Telemetry Patient Problems: Current Active Problems Problem Status Onset Chest pain Acute Hypokalemia Acute Condition: GOOD
[2017-07-24 19:59] LABS: BASO # 0.07 K/mm3 (0.0-2.0); BASO % 0.8 % (0.0-3.0); EOS # 0.2 (0.0-0.7); EOS % 2.8 % (1.5-5.0); GRAN # 5.69 (1.4-6.5); GRAN % 66.8 % (50.0-68.0); HEMOGLOBIN 14.8 g/dL (14.0-18.0); LYMPH % 23.8 % (22.0-35.0); MEAN CELL VOLUME 92.6 fl (80.0-105.0); MEAN CORPUSCULAR HEMOGLOBIN 30.6 pg (25.0-35.0); MEAN PLATELET VOLUME 10.6 fl (7.0-11.0); MONO # 0.5 (0.1-0.6); MONO % 5.8 % (1.0-6.0); RBC 4.84 10^6/uL (3.5-6.1); RED CELL DISTRIBUTION WIDTH 13.9 % (11.5-14.5); WHITE BLOOD COUNT 8.5 10^3/ul (4.5-11.0)
[2017-07-24 20:02] LABS: ALB/GLOB RATIO 1.4 (1.1-1.8); ALBUMIN 4.1 g/dL (3.0-4.8); ALT/SGPT 31 U/L (7-56); AST/SGOT 26 U/L (17-59); BLOOD UREA NITROGEN 24 mg/dL (7-21); CALCIUM 9.5 mg/dL (8.4-10.5); GFR AFRICAN-AMERICAN > 60; GFR NON-AFRICAN AMERICAN > 60
[2017-07-24] MEDS ORDERED: Potassium Chloride 20 mEq ER Tab PO STA (20:11)
[2017-07-24 20:19] LABS: TROPONIN I < 0.01 ng/mL
[2017-07-24] MEDS ORDERED: Levalbuterol 0.63 MG/3 ML Inhal Soln UD IH ONE (22:46)
[2017-07-25] MEDS ORDERED: Oxycodone/Acetaminophen 5/325 mg Tab PO STA (02:59)
--- NOTE | 2017-07-25 06:32 | CP.PCM.PN ---
Subjective - Date & Time of Evaluation Date of Evaluation: 07/24/17 Time of Evaluation: 22:40 - Subjective Subjective: pt is c/o cp sternal when he takes deep breath. states he wants something to relax and sleep.pt has hx of smoking. Objective - Vital Signs/Intake and Output Vital Signs (last 24 hours): Temp Pulse Resp BP Pulse Ox 98.3 F 92 H 16 126/83 97 07/24/17 19:15 07/24/17 19:15 07/24/17 19:15 07/24/17 19:15 07/24/17 19:15 - Constitutional Appears: No Acute Distress - Head Exam Head Exam: NORMOCEPHALIC - Eye Exam Eye Exam: Normal appearance Pupil Exam: PERRL - ENT Exam ENT Exam: Mucous Membranes Moist - Neck Exam Neck Exam: Full ROM - Respiratory Exam Respiratory Exam: Wheezes - Cardiovascular Exam Cardiovascular Exam: RRR, +S1, +S2 - GI/Abdominal Exam GI & Abdominal Exam: Soft - Rectal Exam Rectal Exam: Deferred - Extremities Exam Extremities Exam: Full ROM - Neurological Exam Neurological Exam: Awake, Oriented x3 - Psychiatric Exam Psychiatric exam: Normal Affect - Skin Skin Exam: Dry, Warm Assessment and Plan - Assessment and Plan (Free Text) Assessment: musculoskeletal cp. hx of smoking . bronchospasm. Plan: xopenex nebs treatment . percocet x1 tab stat.
[2017-07-25 06:39] VITALS: BMI 24.3
[2017-07-25 06:45] VITALS: BP 109/77; RESP 20; TEMP 98.2; O2SAT 96
[2017-07-25 08:17] LABS: HEMOGLOBIN 14.3 g/dL (14.0-18.0); MEAN CELL VOLUME 93.4 fl (80.0-105.0); MEAN CORPUSCULAR HEMOGLOBIN 30.4 pg (25.0-35.0); MEAN CORPUSCULAR HGB CONC 32.6 g/dl (31.0-37.0); MEAN PLATELET VOLUME 10.4 fl (7.0-11.0); RBC 4.7 10^6/uL (3.5-6.1); WHITE BLOOD COUNT 8.1 10^3/ul (4.5-11.0)
[2017-07-25 08:23] LABS: ALB/GLOB RATIO 1.4 (1.1-1.8); ALT/SGPT 34 U/L (7-56); AST/SGOT 23 U/L (17-59); BLOOD UREA NITROGEN 24 mg/dL (7-21); CALCIUM 9.5 mg/dL (8.4-10.5); GFR AFRICAN-AMERICAN > 60; GFR NON-AFRICAN AMERICAN > 60
[2017-07-25 08:34] LABS: TROPONIN I < 0.01 ng/mL
--- NOTE | 2017-07-25 09:58 | RAD ---
HISTORY: cp COMPARISON: 01/24/2014 FINDINGS: LUNGS: No active pulmonary disease. PLEURA: No significant pleural effusion identified, no pneumothorax apparent. CARDIOVASCULAR: Normal. OSSEOUS STRUCTURES: No significant abnormalities. VISUALIZED UPPER ABDOMEN: Normal. OTHER FINDINGS: None. IMPRESSION: No active disease.
[2017-07-25 13:49] VITALS: PULSE 72
--- NOTE | 2017-07-25 17:40 | CON ---
DATE: 07/25/2017 CARDIOLOGY FOLLOWUP HISTORY OF PRESENT ILLNESS: The patient is a 57-year-old male who presented with pleuritic-like chest pain. The patient's cardiac risk factors includes long history of smoking as well as hypertension. He denies diabetes mellitus. No previous cardiac history. The description of his symptoms are dysphagic like yesterday followed by pleuritic-like chest pain today. No evidence for an exertional component to it. SOCIAL HISTORY: The patient is a long-time smoker. REVIEW OF SYSTEMS: Fourteen-point review of systems is reviewed in detail. No cardiac symptomatology is noted. No bleeding ulcers noted. No edema in the lower extremities. PHYSICAL EXAMINATION: VITAL SIGNS: Blood pressure is 109/77, heart rates in the 60s. NECK: Negative JVD. LUNGS: Without rales. HEART: Reveals S1, S2. EXTREMITIES: Without edema. LABORATORY DATA: Hemoglobin is 14.3. Chemistries: Troponins are negative x2. EKG reveals no acute changes. IMPRESSION: 1. Atypical chest pain. 2. No evidence for acute coronary syndrome. 3. Chronic obstructive pulmonary disease. 4. Hypertension. PLAN: Given these findings, the patient has no evidence for acute coronary syndrome. I have discussed with him and his about the need to stop smoking and the consequences of continued smoking. Given his increased risk factors, we will start the patient empirically on statin therapy. He is already taking an aspirin a day. The patient can be discharged today. We will arrange for an outpatient stress test. Jasvir Duran MD
--- NOTE | 2017-07-25 22:28 | CARD ---
APPROVED REPORT EKG Measurement Heart [id number] <Conclusion> Sinus tachycardia Otherwise normal ECG
--- NOTE | 2017-07-26 00:27 | DS ---
HISTORY OF PRESENT ILLNESS: The troponins were negative. He did well with his chest pain. He was advised to quite smoking, was put on Lipitor 20 mg stress test tomorrow with Dr. Duran. He will take his regular medications that he takes at home, which is losartan, Nexium and Norvasc, also I gave him Lipitor and baby aspirin. He is not allowed to smoke anymore and he will follow up with me in 2 days; tomorrow is the stress test. The troponins were negative. Bo Newsome DO [facility]
--- NOTE | 2017-07-26 08:49 | HP ---
HISTORY OF PRESENT ILLNESS: I have known him for many years. He came into the emergency room after stabbing, sharp, aching chest pain. The brought him in. A little bit of sweating, little dizziness, and a little shortness of breath. No nausea or vomiting. First time he has had this. It was coming and going all day long. He has been doing a very long shift of the and it could be that he strained his chest from his work. PAST MEDICAL HISTORY: Hypertension. He has had a TIA in the past, he had arthritis. He had bilateral rotator cuff surgery, left ankle surgery, and sinus surgery. FAMILY HISTORY: There is hypertension in the family. SOCIAL HISTORY: He is still smoking cigarettes. He still drinks alcohol, but no drugs. ALLERGIES: NAPROSYN, SULFAMETHOXAZOLE, AND BACTRIM. MEDICATIONS: He takes Nexium for the GERD, Diovan and Norvasc for hypertension, which is okay at this time. REVIEW OF SYSTEMS: No acute vision changes, hearing changes. No sore throat. No neck pain. He had some shortness of breath. No coughing or wheezing. He had some chest pain. No palpitations. No nausea, vomiting, constipation, or diarrhea. No abdominal pain. No problems urinating. No headache or focal weakness. No dizziness. No anxiety. No depression. He said his skin for the most part is intact. No apparent rashes or ulcers. PHYSICAL EXAMINATION: VITAL SIGNS: He has a 98.3 temperature, 92 pulse, 16 respiratory rate, 126/83 blood pressure, 97% O2 sat on room air. GENERAL: He is well appearing, nontoxic, comfortable at this time. Alert and oriented x3. HEENT: His head is atraumatic, normocephalic. Extraocular muscles are intact. Pupils are equal and reactive to light and accommodation. Throat is moist. NECK: Supple. HEART: Regular rate. Normal S1, S2. LUNGS: Clear to auscultation bilaterally with decreased breath sounds secondary to the smoking he has done. ABDOMEN: Soft, nontender. Positive bowel sounds. No guarding. No rebound. No CVA tenderness. EXTREMITIES: No edema. NEUROLOGIC: GCS is 15. Cranial nerves II through XII grossly intact. Speech is normal. No neurological deficits. Alert and oriented x3. LYMPHATIC: Thyroid midline. No palpable appreciable lymphadenopathy. LABORATORY DATA: He has an 8.5 white count, 14.8 hemoglobin, 44.8 hematocrit with 326 platelets. Sodium 144; potassium 3.5, given potassium in ER; BUN 24; creatinine 0.8; GFR is greater than 60; sugar is 143; calcium 9.5, magnesium 2.2. Total bilirubin is 0.5, AST is 26, ALT is 31, alkaline phosphatase 92. Lactate dehydrogenase is 395. Troponin I is less than 0.01, total protein 7.1. He is having labs pending this morning. A chest x-ray is pending. He has a consult with Cardiology. We will keep an eye on him. If the next troponins are negative and Cardiology says he can be discharged, we will discharge him. I will put him back on his blood pressure pills at this time but his blood pressure is 109/77, quite low, so I am going to hold off on his blood pressure medications for the time being. He has got chest pain. I believe it is costochondritis. We will continue aggressive treatment and care on Jose Enrique Del Cid. If things go well, we will discharge him this afternoon in observation status for chest pain. Bo Newsome DO [facility]
== END 2017-07-25 13:04 | disposition home or self-care (01) ==
LOC: ED 19:07 → ERH 20:28 → 2RNO 22:15
PROVIDERS: ADMIT Family Medicine; ATTEND Family Medicine
DX: R07.89 Other chest pain (principal); I10 Essential (primary) hypertension; J98.01 Acute bronchospasm; E87.6 Hypokalemia; J44.9 Chronic obstructive pulmonary disease, unspecified; F17.210 Nicotine dependence, cigarettes, uncomplicated; M19.90 Unspecified osteoarthritis, unspecified site; Z86.73 Personal history of transient ischemic attack (TIA), and cerebral infarction without residual deficits; Z82.49 Family history of ischemic heart disease and other diseases of the circulatory system
CPT/HCPCS: 36415; 71045; 80053; 82550; 83615; 83735; 84484; 85025; 85027; 93005; 94640; 99285; G0378